=== PATIENT | female | born 2000 | race Two or more races ===

== ENCOUNTER 2022-05-02 03:50 | Emergency (ER) | payer OTHER ==
[~2022-05-02] VITALS: Ht 185.4 cm; Wt 88.5 kg
[2022-05-02] MEDS ORDERED: SYNTHROID75 MCG PO (04:04)
[2022-05-02] MEDS ORDERED: CEPHALEXIN500 MG PO (04:50)
[2022-05-02] MEDS ORDERED: KETO10TA2 PO (04:50)
== END 2022-05-02 04:54 ==
LOC: ER 03:50
DX: L02.214 Cutaneous abscess of groin (principal); E03.9 Hypothyroidism, unspecified; Z87.2 Personal history of diseases of the skin and subcutaneous tissue

== ENCOUNTER 2023-11-22 09:15 | Emergency (ER) | payer OTHER ==
[~2023-11-22] VITALS: Ht 185.4 cm; Wt 88.5 kg
[~2023-11-22 09:15] MED LIST: BACTRIM DS TAB1 EACH PO; CEPHALEXIN500 MG PO; KETO10TA2 PO; MUPIROCIN15 GM TOP; SYNTHROID75 MCG PO
[2023-11-22] MEDS ORDERED: KETOROLAC TROMETHAMINE 30 MG VIAL IM STA (09:43)
[2023-11-22] MEDS ORDERED: CEFTRIAXONE SODIUM 1,000 MG VIAL IM STA (09:43)
== END 2023-11-22 10:06 | disposition home or self-care (01) ==
LOC: ER 09:16
DX: L03.116 Cellulitis of left lower limb (principal); L02.416 Cutaneous abscess of left lower limb

== ENCOUNTER 2024-02-03 12:51 | Emergency (ER) | payer OTHER ==
[~2024-02-03] VITALS: Ht 185.4 cm; Wt 88.5 kg
[2024-02-03] MEDS ORDERED: TRAMADOL HCL 50 MG TABLET PO ONE (13:45)
[2024-02-03] MEDS ORDERED: KETO10TA2 PO (16:01)
== END 2024-02-03 16:09 | disposition home or self-care (01) ==
LOC: ER 12:53
DX: M79.661 Pain in right lower leg (principal)

== ENCOUNTER → 2024-03-03 | Emergency (ER) | payer OTHER | END | disposition left against medical advice (07) | LOC: ER 18:03 | DX: Z53.21 Procedure and treatment not carried out due to patient leaving prior to being seen by health care provider (principal) ==

== ENCOUNTER → 2025-02-10 | Emergency (ER) | payer OTHER | END | disposition left against medical advice (07) | LOC: ER 13:51 | DX: Z53.21 Procedure and treatment not carried out due to patient leaving prior to being seen by health care provider (principal) ==